=== PATIENT | female | born 1990 | race American Indian/Alaskan Native ===

== ENCOUNTER 2016-10-16 15:12 | Emergency (ER) | payer SELFPAY ==
[2016-10-16 18:49] VITALS: BP 121/76
[2016-10-16] MEDS ORDERED: XYLOCAINE 1% MPF 5 mL INFILTRATI ONE (19:12)
[2016-10-16] MEDS ORDERED: TRIPLE ANTIBIOTIC TP SCH (20:00)
--- NOTE | 2016-10-16 20:32 | Emergency Department Report ---
- General Chief Complaint: Skin/Abscess/Foreign Body Stated Complaint: INSECT BITE Time Seen by Provider: 10/16/16 19:05 Source: patient Mode of arrival: Ambulatory Limitations: No Limitations - History of Present Illness Initial Comments: Patient presents with abscess inferior to the left axilla/left lateral breast. Patient admits to green drainage, redness, tenderness to palpation. Patient does have a history of diabetes -: Gradual 1 - abscess Patient Tetanus UTD: Yes Associated Symptoms: pain - Related Data Home Medications Medication Instructions Recorded Confirmed Last Taken ALBUTEROL Inhaler [ProAir HFA 2 puff INHALATION BID 07/19/16 07/21/16 1 Week Ago Inhaler] Budesoni/Formotero 160-4.5(Nf) 2 puff IH BID 07/19/16 07/19/16 07/21/16 08:40 [Symbicort 160-4.5 (Nf)] Fluticasone Propionate [Flovent 1 puff IH BID 07/19/16 07/19/16 07/21/16 08:40 Diskus] Pregabalin [Lyrica] 150 mg PO DAILY 07/19/16 07/19/16 07/20/16 metFORMIN [Glucophage] 500 mg PO BID 07/19/16 07/19/16 07/20/16 Previous Rx's Medication Instructions Recorded Last Taken Type Docusate Sodium [Colace] 100 mg PO BID PRN #30 capsule 06/18/16 07/20/16 Rx Esomeprazole Magnesium [Nexium 20 mg PO DAILY #30 tablet. 06/18/16 07/20/16 Rx 24Hr] HYDROcodone/APAP 5-325 [[place] 1 each PO Q6HR PRN #20 tablet 06/18/16 07/20/16 Rx 5-325 mg TAB] Ibuprofen [Motrin 800 MG tab] 800 mg PO Q8HR PRN #30 tablet 06/18/16 07/20/16 Rx Ondansetron [Zofran Odt] 4 mg PO Q8HR PRN #20 tab.rapdis 06/18/16 07/20/16 Rx HYDROcodone/ACETAMINOPHEN [Vicodin 1 tab PO Q6HR PRN #20 tablet 07/21/16 Unknown Rx HP 10-300 mg TAB] Sulfamethoxazole/Trimethoprim 1 each PO BID #20 tablet 10/16/16 Unknown Rx [Bactrim DS TAB] traMADol [Ultram 50 MG tab] 50 mg PO BID PRN #20 tablet 10/16/16 Unknown Rx Allergies Allergy/AdvReac Type Severity Reaction Status Date / Time Fish Containing Products Allergy Anaphylaxis Verified 05/18/15 21:56 latex Allergy Hives Verified 05/18/15 21:56 nut - unspecified [nut] Allergy Anaphylaxis Verified 05/18/15 21:56 ED Review of Systems ROS: Stated complaint: INSECT BITE Other details as noted in HPI Constitutional: denies: chills, fever Respiratory: denies: cough, shortness of breath, wheezing Cardiovascular: denies: chest pain, palpitations Gastrointestinal: denies: abdominal pain, nausea, diarrhea Musculoskeletal: denies: back pain, joint swelling, arthralgia Skin: as per HPI, other (abscess inferior to left axilla, left lateral breast) Neurological: denies: headache, weakness, paresthesias ED Past Medical Hx - Past Medical History Previous Medical History?: Yes Hx Hypertension: No Hx Diabetes: Yes Hx GERD: Yes Hx Asthma: Yes Additional medical history: sciatica, hernia - Surgical History Past Surgical History?: Yes Additional Surgical History: x2, hernia repair - Social History Smoking Status: Current Every Day Smoker Substance Use Type: Alcohol - Medications Home Medications: Home Medications Medication Instructions Recorded Confirmed Last Taken Type Docusate Sodium [Colace] 100 mg PO BID PRN #30 capsule 06/18/16 07/19/16 Rx Esomeprazole Magnesium [Nexium 20 mg PO DAILY #30 tablet. 06/18/16 07/19/16 Rx 24Hr] HYDROcodone/APAP 5-325 [[place] 1 each PO Q6HR PRN #20 tablet 06/18/16 07/19/16 Rx 5-325 mg TAB] Ibuprofen [Motrin 800 MG tab] 800 mg PO Q8HR PRN #30 tablet 06/18/16 07/19/16 Rx Ondansetron [Zofran Odt] 4 mg PO Q8HR PRN #20 tab.rapdis 06/18/16 07/19/1607/20 Rx ALBUTEROL Inhaler [ProAir HFA 2 puff INHALATION BID 07/19/16 07/21/16 1 Week Ago History Inhaler] Budesoni/Formotero 160-4.5(Nf) 2 puff IH BID 07/19/16 07/19/16 07/21/16 08:40 History [Symbicort 160-4.5 (Nf)] Fluticasone Propionate [Flovent 1 puff IH BID 07/19/16 07/19/16 07/21/16 08:40 History Diskus] Pregabalin [Lyrica] 150 mg PO DAILY 07/19/16 07/19/16 07/20/16 History metFORMIN [Glucophage] 500 mg PO BID 07/19/16 07/19/16 07/20/16 History HYDROcodone/ACETAMINOPHEN [Vicodin 1 tab PO Q6HR PRN #20 tablet 07/21/16 Unknown Rx HP 10-300 mg TAB] Sulfamethoxazole/Trimethoprim 1 each PO BID #20 tablet 10/16/16 Unknown Rx [Bactrim DS TAB] traMADol [Ultram 50 MG tab] 50 mg PO BID PRN #20 tablet 10/16/16 Unknown Rx ED Physical Exam - General Limitations: No Limitations General appearance: alert, in no apparent distress - Head Head exam: Present: atraumatic, normocephalic - Eye Eye exam: Present: normal appearance - Neck Neck exam: Present: normal inspection, full ROM - Respiratory Respiratory exam: Present: normal lung sounds bilaterally. Absent: respiratory distress - Cardiovascular Cardiovascular Exam: Present: regular rate, normal rhythm. Absent: systolic murmur, diastolic murmur, rubs, gallop - Neurological Exam Neurological exam: Present: alert, oriented X3 - Psychiatric Psychiatric exam: Present: normal affect, normal mood - Skin Skin exam: Present: other (left side inferior to left axilla there is an open wound/abscess that is draining green/yellow discharge, there is redness around the wound and very ttp) ED Course Vital Signs 10/16/16 10/16/16 15:24 18:48 Temperature 98.2 F Pulse Rate 94 H 84 Respiratory 18 16 Rate Blood Pressure 117/71 Blood Pressure 121/76 [Right] O2 Sat by Pulse 100 99 Oximetry - I & D Left Lateral Breast Type of Procedure: Complex I & D Procedure: betadine prep, sterile dressing applied, gauze wick placed Progress: patient tolerated well ED Medical Decision Making - Medical Decision Making Patient presents with abscess and cellulitis, no incision due to wound being open, I injected with 2cc of lidocaine and was able to express some drainage, culture was taken, will place on Bactrim bid and advise to f/u in 3 days for re- eval. - Differential Diagnosis abscess, cellulitis, sebaceous cyst Critical Care Time: No Critical care attestation.: If time is entered above; I have spent that time in minutes in the direct care of this critically ill patient, excluding procedure time. ED Disposition Clinical Impression: Abscess, Cellulitis Disposition: DISCHARGED TO HOME OR SELFCARE Is pt being admited?: No Does the pt Need Aspirin: No Condition: Stable Instructions: Cellulitis (ED), Abscess (ED) Additional Instructions: keep wound clean, dry and covered with vaseline until healed. Follow up in 3 days for re-evaluation. Prescriptions: Sulfamethoxazole/Trimethoprim [Bactrim DS TAB] 1 each PO BID #20 tablet traMADol [Ultram 50 MG tab] 50 mg PO BID PRN #20 tablet PRN Reason: Pain Time of Disposition: 20:38
== END 2016-10-16 20:57 | disposition home or self-care (01) ==
LOC: ED 15:12
DX: N61.1 Abscess of the breast and nipple (principal); I10 Essential (primary) hypertension; E11.9 Type 2 diabetes mellitus without complications; K21.9 Gastro-esophageal reflux disease without esophagitis; J45.909 Unspecified asthma, uncomplicated; F17.200 Nicotine dependence, unspecified, uncomplicated; Z91.040 Latex allergy status; Z91.018 Allergy to other foods; Z91.013 Allergy to seafood
CPT/HCPCS: 82962; 87076; 87116; 87186

== ENCOUNTER 2020-10-11 19:53 | Emergency (ER) | payer SELFPAY | END 2020-10-11 20:00 | disposition left against medical advice (07) | LOC: ED 19:53 | DX: Z53.21 Procedure and treatment not carried out due to patient leaving prior to being seen by health care provider (principal) ==

== ENCOUNTER 2020-12-24 01:56 | Emergency (ER) | payer OTHER ==
[2020-12-24] MEDS ORDERED: ACETAMINOPHEN 500 MG TAB PO ONE (02:19)
--- NOTE | 2020-12-24 02:51 | Emergency Department Report ---
ED Female HPI - General Chief complaint: Vaginal Bleeding Stated complaint: 18WKS PREG/BLEEDING Source: patient Mode of arrival: Ambulatory Limitations: No Limitations - History of Present Illness Initial comments: Patient is a A2 30-year-old -Surinamese female who is approximately 18 weeks gestation and who has a past medical history of GERD, asthma and [id number] diabetes who presents to the ED with acute onset persistent pelvic pain and heavy vaginal bleeding for the last 3 hours. Patient states that she was asleep when she felt a gush and thought it was time for her to void urine but when she went to the bathroom she realized that she had been bleeding. Patient states that subsequently the bleeding became heavier and developing to large blood clots. Patient states that she has used up to 5 sanitary pads to help control the bleeding. Patient denies fever, chills, nausea, vomiting, lightheadedness, dizziness, syncope, diarrhea, dysuria, urinary frequency and urgency, change in vision, cough, traumatic injury or heavy lifting. MD Complaint: vaginal bleeding, pelvic pain -: Sudden, hour(s) (3) Location: suprapubic, other (Vaginal) Radiation: non-radiating Severity: severe Severity scale (0 -10): 7 Quality: cramping, sharp Consistency: constant Improves with: none Worsens with: none Are you Now?: Yes (Approximately 18 weeks gestation) Associated Symptoms: denies other symptoms, vaginal bleeding, abdominal pain (Suprapubic pain). denies: vaginal discharge, nausea/vomiting, fever/chills, headaches, loss of appetite, dysuria, hematuria, rash, seizure, shortness of breath, syncope, weakness - Related Data Sexually active: Yes : 5 Para: 2 A: 2 Home Medications Medication Instructions Recorded Confirmed Last Taken Albuterol Mdi (or & Nicu Only) 2 puff INHALATION BID 07/19/16 07/21/16 1 Week Ago [ProAir HFA Inhaler] ~07/14/16 Budesoni/Formotero 160-4.5(Nf) 2 puff IH BID 07/19/16 07/19/16 07/21/16 08:40 [Symbicort 160-4.5 (Nf)] Fluticasone Propionate [Flovent 1 puff IH BID 07/19/16 07/19/16 07/21/16 08:40 Diskus] Pregabalin [Lyrica] 150 mg PO DAILY 07/19/16 07/19/16 07/20/16 metFORMIN [Glucophage] 500 mg PO BID 07/19/16 07/19/16 07/20/16 Previous Rx's Medication Instructions Recorded Last Taken Type Docusate Sodium [Colace] 100 mg PO BID PRN #30 capsule 06/18/16 07/20/16 Rx Esomeprazole Magnesium [Nexium 20 mg PO DAILY #30 tablet.dr 06/18/16 07/20/16 Rx 24Hr] HYDROcodone/APAP 5-325 [[place] 1 each PO Q6HR PRN #20 tablet 06/18/16 07/20/16 Rx 5-325 mg TAB] Ibuprofen [Motrin 800 MG tab] 800 mg PO Q8HR PRN #30 tablet 06/18/16 07/20/16 Rx Ondansetron [Zofran Odt] 4 mg PO Q8HR PRN #20 tab.rapdis 06/18/16 07/20/16 Rx HYDROcodone/ACETAMINOPHEN [Vicodin 1 tab PO Q6HR PRN #20 tablet 07/21/16 Unknown Rx HP 10-300 mg TAB] Sulfamethoxazole/Trimethoprim 1 each PO BID #20 tablet 10/16/16 Unknown Rx [Bactrim DS TAB] traMADoL [Ultram 50 MG tab] 50 mg PO BID PRN #20 tablet 10/16/16 Unknown Rx Acetaminophen [Tylenol] 1 - 2 tab PO Q6HR PRN #30 tablet 12/24/20 Unknown Rx cephALEXin [Keflex] 500 mg PO Q8HR #30 cap 12/24/20 Unknown Rx Allergies Allergy/AdvReac Type Severity Reaction Status Date / Time Fish Containing Products Allergy Anaphylaxis Verified 05/18/15 21:56 latex Allergy Hives Verified 05/18/15 21:56 nut - unspecified [nut] Allergy Anaphylaxis Verified 05/18/15 21:56 ED Review of Systems ROS: Stated complaint: 18WKS PREG/BLEEDING Other details as noted in HPI Constitutional: denies: chills, fever Eyes: denies: eye pain, eye discharge, vision change ENT: denies: ear pain, throat pain Respiratory: denies: cough, shortness of breath, wheezing Cardiovascular: denies: chest pain, palpitations Endocrine: no symptoms reported Gastrointestinal: abdominal pain (Suprapubic pain). denies: nausea, vomiting, diarrhea Genitourinary: abnormal menses (Heavy vaginal bleeding). denies: urgency, d ysuria, discharge Musculoskeletal: denies: back pain, joint swelling, arthralgia Skin: denies: rash, lesions Neurological: denies: headache, weakness, paresthesias Psychiatric: denies: anxiety, depression Hematological/Lymphatic: denies: easy bleeding, easy bruising ED Past Medical Hx - Past Medical History Previous Medical History?: Yes Hx Hypertension: No Hx Diabetes: Yes Hx GERD: Yes Hx Asthma: Yes Additional medical history: sciatica, hernia - Surgical History Past Surgical History?: Yes Additional Surgical History: x2, hernia repair - Social History Smoking Status: Former Smoker Substance Use Type: None - Medications Home Medications: Home Medications Medication Instructions Recorded Confirmed Last Taken Type Docusate Sodium [Colace] 100 mg PO BID PRN #30 capsule 06/18/16 07/19/16 07/20/16 Rx Esomeprazole Magnesium [Nexium 20 mg PO DAILY #30 tablet. 06/18/16 07/19/16 07/20/16 Rx 24Hr] HYDROcodone/APAP 5-325 [[place] 1 each PO Q6HR PRN #20 tablet 06/18/16 07/19/16 1 Rx 5-325 mg TAB] Ibuprofen [Motrin 800 MG tab] 800 mg PO Q8HR PRN #30 tablet 06/18/16 07/19/16 07/20/16 Rx Ondansetron [Zofran Odt] 4 mg PO Q8HR PRN #20 tab.rapdis 06/18/16 07/19/16 07/20/16 Rx Albuterol Mdi (or & Nicu Only) 2 puff INHALATION BID 07/19/16 07/21/16 1 Week Ago History [ProAir HFA Inhaler] ~07/14/16 Budesoni/Formotero 160-4.5(Nf) 2 puff IH BID 07/19/16 07/19/16 07/21/16 08:40 History [Symbicort 160-4.5 (Nf)] Fluticasone Propionate [Flovent 1 puff IH BID 07/19/16 07/19/16 07/21/16 08:40 History Diskus] Pregabalin [Lyrica] 150 mg PO DAILY 07/19/16 07/19/16 07/20/16 History metFORMIN [Glucophage] 500 mg PO BID 07/19/16 07/19/16 07/20/16 History HYDROcodone/ACETAMINOPHEN [Vicodin 1 tab PO Q6HR PRN #20 tablet 07/21/16 Unknown Rx HP 10-300 mg TAB] Sulfamethoxazole/Trimethoprim 1 each PO BID #20 tablet 10/16/16 Unknown Rx [Bactrim DS TAB] traMADoL [Ultram 50 MG tab] 50 mg PO BID PRN #20 tablet 10/16/16 Unknown Rx Acetaminophen [Tylenol] 1 - 2 tab PO Q6HR PRN #30 tablet 12/24/20 Unknown Rx cephALEXin [Keflex] 500 mg PO Q8HR #30 cap 12/24/20 Unknown Rx ED Physical Exam - General Limitations: No Limitations General appearance: alert, in no apparent distress - Head Head exam: Present: atraumatic, normocephalic, normal inspection - Eye Eye exam: Present: normal appearance, PERRL, EOMI Pupils: Present: normal accommodation - ENT ENT exam: Present: normal exam, normal orophraynx, mucous membranes moist, TM's normal bilaterally, normal external ear exam - Neck Neck exam: Present: normal inspection, full ROM - Respiratory Respiratory exam: Present: normal lung sounds bilaterally. Absent: respiratory distress, wheezes, stridor, chest wall tenderness, decreased breath sounds, prolonged expiratory - Cardiovascular Cardiovascular Exam: Present: normal rhythm, tachycardia, normal heart sounds. Absent: systolic murmur, diastolic murmur, rubs, gallop - GI/Abdominal GI/Abdominal exam: Present: soft, tenderness (Palpable mild suprapubic tenderness), normal bowel sounds. Absent: guarding, rebound, hyperactive bowel sounds, hypoactive bowel sounds, organomegaly - Bi-manual exam: Present: other (Pelvic exam deferred at this time) - Extremities Exam Extremities exam: Present: normal inspection, full ROM, normal capillary refill - Back Exam Back exam: Present: normal inspection, full ROM. Absent: tenderness, CVA tenderness (R), CVA tenderness (L), muscle spasm, paraspinal tenderness, v ertebral tenderness - Neurological Exam Neurological exam: Present: alert, oriented X3, CN II-XII intact, normal gait, reflexes normal - Psychiatric Psychiatric exam: Present: normal affect, normal mood - Skin Skin exam: Present: warm, dry, intact, normal color. Absent: rash ED Course Vital Signs 12/24/20 12/24/20 12/24/20 02:16 03:40 03:45 Temperature 98.2 F Pulse Rate 100 H Respiratory 16 16 22 Rate Blood Pressure 126/71 Blood Pressure 109/64 [Right] O2 Sat by Pulse 100 100 Oximetry ED Medical Decision Making - Lab Data Result diagrams: 12/24/20 02:28 12/24/20 02:28 - Radiology Data Radiology results: report reviewed, image reviewed [facility] [address] [place] [address] Ultrasound Report Signed Patient: LAM KAY V MR#: [id number] : 1990 Acct:[id number] Age/Sex: 30 / F ADM Date: 12/24/20 Loc: ED Attending Dr: Ordering Physician: TERESITA CASILLAS Date of Service: 12/24/20 Procedure(s): US OB >= 14 weeks Fetus Accession Number(s): [id number] cc: TERESITA CASILLAS ULTRASOUND OBSTETRIC INDICATION / CLINICAL INFORMATION: Pelvic pain, vaginal bleeding, 18 weeks gestation. Clinical Gestational Age (GA): 18 weeks 6 days TECHNIQUE: Transabdominal. COMPARISON: None available. FINDINGS: There is a single intrauterine . Biparietal Diameter = 4.5 cm = 19 weeks, 4 day(s). Head Circumference = 15.2 cm = 18 weeks, 2 day(s). Abdominal Circumference = 11.3 cm = 17 weeks, 1 day(s). Femur Length = 2.3 cm = 16 weeks, 5 day(s). Average Ultrasound Age (AUA) = 18 weeks, 0 day(s). Heart Rate: 152 beats per minute. Estimated Weight in grams (if calculated): Estimated Weight Growth Percentile (if calculated): Position: cephalic. Cervix: closed. Length in cm (if measured): Placenta: Anterior fundal grade 1 and free of the os. Amniotic Fluid Volume: normal Amniotic Fluid Index (IGNACIO) in cm (if calculated): . Maternal Adnexa: No significant abnormality. IMPRESSION: 1. Single, living intrauterine with estimated sonographic age of 18 weeks, 0 day(s). 2. No significant sonographic abnormality. Signer Name: Guero Manuel MD Signed: 12/24/2020 4:28 AM Workstation Name: [id number] Transcribed By: CAMERON Dictated By: Guero Manuel MD Electronically Authenticated By: Guero Manuel MD Signed Date/Time: 12/24/20427 DD/ 4 TD/TT: - Medical Decision Making This is a A2 30-year-old -[place]inamese female who is approximately 18 weeks gestation and who has a past medical history of GERD, asthma and dvp-lwcxsoi-umhgwulfl diabetes who presents to the ED with acute onset persistent pelvic pain and heavy vaginal bleeding for the last 3 hours. Patient states that she was asleep when she felt a gush and thought it was time for her to void urine but when she went to the bathroom she realized that she had been bleeding. Patient states that subsequently the bleeding became heavier and developing to large blood clots. Patient states that she has used up to 5 sanitary pads to help control the bleeding. In the ED, patient is alert and oriented x3 and is not in distress. Patient was treated for pain with Tylenol, labs are drawn and pelvic ultrasound also ordered. Pelvic ultrasound showed single, living intrauterine with estimated sonographic age of 18 weeks, 0 day(s), and with a heart rate of 152 bpm. There is no significant sonographic abnormality. Lab test results were reviewed and showed acute leukocytosis of 11,200 with hCG quant of 5721. Urinalysis showed significant blood in urine with moderate leukocyte esterase and 405 WBCs with few budding yeast. Patient was treated in the ED with Keflex 1 g p.o. x1. On reevaluation, patient's pain is well controlled with medications. Patient was discharged home on pain medication and antibiotics and was advised to maintain a complete pelvic rest, and follow-up with [employer] physician in 24 to 48 hours for reevaluation. Patient was advised to return to the ED immediately if her symptoms get worse. - Differential Diagnosis Threatened miscarriage; ovarian cyst; subchorionic bleed; kidney stone; UTI Critical care attestation.: If time is entered above; I have spent that time in minutes in the direct care of this critically ill patient, excluding procedure time. ED Disposition Clinical Impression: Threatened miscarriage, Abdominal pain during in second trimester, Vaginal bleeding in patient at less than 20 weeks gestation, Acute urinary tract infection Disposition: - TO HOME OR SELFCARE Is pt being admited?: No Does the pt Need Aspirin: No Condition: Stable Instructions: Abdominal Pain During , [id number], Vaginal Bleeding During , Second Trimester, Threatened Miscarriage, [id number], Urinar y Tract Infection, Adult, [id number] Additional Instructions: The pelvic ultrasound showed a single living intrauterine of approximately 18 weeks and 0 days with a heart rate of 152 bpm. All lab test results were reviewed and showed significant urinary tract infection and gross blood in urine. Therefore maintain a complete pelvic rest with no physical or strenuous activity or sexual activity and take Tylenol as needed for pain antibiotic as advised. Follow-up with your [employer] physician in 24 to 48 hours for reevaluation. Return to the ED immediately if symptoms get worse. Prescriptions: Acetaminophen [Tylenol] 1 - 2 tab PO Q6HR PRN #30 tablet PRN Reason: Pain , Severe (7-10) cephALEXin [Keflex] 500 mg PO Q8HR #30 cap Referrals: SULLY ALMARAZ MD [Staff Physician] - 3-5 Days Forms: Work/School Release Form(ED) Time of Disposition: 05:12 Print Language: IRISH
[2020-12-24] MEDS ORDERED: cephALEXin 500 MG CAP PO ONE (04:05)
[2020-12-24 04:19] LABS: Alanine Aminotransferase 24 units/L (7-56); Albumin 3.8 g/dL (3.9-5); BUN/Creatinine Ratio 15; Blood Urea Nitrogen 9 mg/dL (7-17); Calcium 8.7 mg/dL (8.4-10.2); Hemolysis Index 3
--- NOTE | 2020-12-24 04:33 | Ultrasound Report ---
ULTRASOUND OBSTETRIC INDICATION / CLINICAL INFORMATION: Pelvic pain, vaginal bleeding, 18 weeks gestation. Clinical Gestational Age (GA): 18 weeks 6 days TECHNIQUE: Transabdominal. COMPARISON: None available. FINDINGS: There is a single intrauterine . Biparietal Diameter = 4.5 cm = 19 weeks, 4 day(s). Head Circumference = 15.2 cm = 18 weeks, 2 day(s). Abdominal Circumference = 11.3 cm = 17 weeks, 1 day(s). Femur Length = 2.3 cm = 16 weeks, 5 day(s). Average Ultrasound Age (AUA) = 18 weeks, 0 day(s). Heart Rate: 152 beats per minute. Estimated Weight in grams (if calculated): Estimated Weight Growth Percentile (if calculated): Position: cephalic. Cervix: closed. Length in cm (if measured): Placenta: Anterior fundal grade 1 and free of the os. Amniotic Fluid Volume: normal Amniotic Fluid Index (IGNACIO) in cm (if calculated): . Maternal Adnexa: No significant abnormality. IMPRESSION: 1. Single, living intrauterine with estimated sonographic age of 18 weeks, 0 day(s). 2. No significant sonographic abnormality. Signer Name: Guero Manuel MD Signed: 12/24/2020 4:28 AM Workstation Name: [email or web address] [id number] [email or web address]
[2020-12-24 04:58] LABS: Hematocrit 31.5 % (30.3-42.9); Hemoglobin 10.3 gm/dl (10.1-14.3); Mean Corpuscular HGB Conc 33 % (30-34); Mean Corpuscular Volume 92 fl (79-97); Red Blood Count 3.44 M/mm3 (3.65-5.03)
[2020-12-24 04:59] LABS: Basophils # (Auto) 0.1 K/mm3 (0.0-0.1); Basophils % (Auto) 0.5 % (0.0-1.8); Eosinophils # (Auto) 0.1 K/mm3 (0.0-0.4); Eosinophils % (Auto) 1.1 % (0.0-4.3); Lymphocytes # (Auto) 2.9 K/mm3 (1.2-5.4); Lymphocytes % (Auto) 25.7 % (13.4-35.0); Mean Platelet Volume 10.9 fl (6-12); Monocytes # (Auto) 1.1 K/mm3 (0.0-0.8); Monocytes % (Auto) 9.8 % (0.0-7.3); Platelet Count 135 K/mm3 (140-440); Red Cell Distribution Width 13.8 % (13.2-15.2)
[2020-12-24 05:42] VITALS: BP 109/73
[2020-12-24 05:57] LABS: Color,Urine Red (Yellow)
[2020-12-24 05:58] LABS: Bilirubin,Urine Negative (Negative); Blood,Urine Large (Negative); RBC,Urine > 182.0 /HPF (0.0-6.0); Urobilinogen,Urine < 2.0 mg/dL (<2.0)
[2020-12-24 05:59] LABS: Mucus,Urine 1+ /HPF; WBC,Urine > 182.0 /HPF (0.0-6.0)
== END 2020-12-24 05:43 | disposition home or self-care (01) ==
LOC: ED 01:56
DX: O20.0 Threatened abortion (principal); O23.42 Unspecified infection of urinary tract in pregnancy, second trimester; O99.512 Diseases of the respiratory system complicating pregnancy, second trimester; O24.112 Pre-existing type 2 diabetes mellitus, in pregnancy, second trimester; O99.612 Diseases of the digestive system complicating pregnancy, second trimester; K21.9 Gastro-esophageal reflux disease without esophagitis; J45.909 Unspecified asthma, uncomplicated; K92.89 Other specified diseases of the digestive system; Z3A.18 18 weeks gestation of pregnancy
CPT/HCPCS: 36415; 76805; 80053; 81001; 83690; 84702; 85025; 86900; 86901